=== PATIENT | male | born 1945 | race Native Hawaiian/Other Pacific Islander ===

== ENCOUNTER 2017-01-11 18:09 | Inpatient (IN) | payer MEDICARE ==
[2017-01-11 18:31] VITALS: BMI 20.9
--- NOTE | 2017-01-11 18:34 | ED PDOC ---
Arrival/HPI - General Chief Complaint: Male Genitourinary Time Seen by Provider: 01/11/17 18:34 - History of Present Illness Narrative History of Present Illness (Text): 01/11/17 18:34 A 71 year old male, with a hx of hypotonic bladder, self catheterizes, and states he has a hx of chronic hematuria. State hematuria has been getting worst for the past 2-3 days and now he has generalized weakness. Patient denies cp/sob /vogt. denies n/v, denies other complaints. Past Medical History - Provider Review Nursing Documentation Reviewed: Yes - Infectious Disease Hx of Infectious Diseases: None - Tetanus Immunization Tetanus Immunization: Unknown - Cardiac Hx Hypertension: Yes Hx Pacemaker: No - Neurological Hx Paralysis: No - HEENT Hx HEENT Disorder: (WEARS RX GLASSES) - Hematological/Oncological Hx Anemia: Yes Hx Blood Transfusions: No Hx Blood Transfusion Reaction: No - Musculoskeletal/Rheumatological Hx Musculoskeletal Disorders: No - Genitourinary/Gynecological Hx Prostate Problems: Yes Hx Reproductive Disorders: No Other/Comment: Does self catheterization - Psychiatric Hx Emotional Abuse: No Hx Physical Abuse: No Hx Substance Use: No - Past Surgical History Past Surgical History: No Previous - Anesthesia Hx Anesthesia: Yes Hx Anesthesia Reactions: No Hx Malignant Hyperthermia: No - Suicidal Assessment Feels Threatened In Home Enviroment: No Family/Social History Family/Social History: Unknown Family HX Smoking Status: Former Smoker Hx Alcohol Use: No Hx Substance Use: No Hx Substance Use Treatment: No Allergies/Home Meds Allergies/Adverse Reactions: Allergies ciprofloxacin [From Cipro] Allergy (Severe, Verified 08/12/15 09:32) RASH ciprofloxacin HCl [From Cipro] Allergy (Severe, Verified 08/12/15 09:32) RASH levofloxacin [From Levaquin] Allergy (Severe, Verified 08/12/15 09:32) RASH omeprazole Allergy (Severe, Verified 08/12/15 09:32) RASH sulfamethoxazole [From Bactrim] Allergy (Severe, Verified 08/12/15 09:32) RASH tamsulosin HCl [From Flomax] Allergy (Severe, Verified 08/12/15 09:32) RASH trimethoprim [From Bactrim] Allergy (Severe, Verified 08/12/15 09:32) RASH Home Medications: Home Meds Medication Instructions Recorded Confirmed Atorvastatin Calcium [Lipitor] 10 mg PO DAILY 07/18/13 08/20/15 Olmesartan/Hydrochlorothiazide 1 tab PO DAILY 08/07/13 08/20/15 [Benicar Hct 12.5 mg-20 mg] Alfuzosin HCl [Uroxatral] 10 mg PO QPM 08/12/15 08/20/15 Physical Exam - Physical Exam Narrative Physical Exam (Text): 01/11/17 20:58 - Review of Systems Constitutional: Weakness. absent: Weight Change, Fevers Eyes: Normal ENT: denies sore throat, denies tristhmus Respiratory: Normal. absent: SOB, Cough, Sputum Cardiovascular: absent: Chest Pain, Palpitations, Syncope Gastrointestinal: Normal. absent: Abdominal Pain, Diarrhea, Nausea, Vomiting Genitourinary: Hematuria. absent: Dysuria, Frequency Musculoskeletal: Normal. absent: Arthralgias, Back Pain, Neck Pain Skin: no rashes, no erythema Neurological: absent: Focal Weakness Endocrine: Normal Hemo/Lymphatic: Normal Psychiatric: No suicidal or homicidal ideations Physical exam Patient appears age appropriate in no distress, speaking full sentences without difficulty - Systems Exam Head: Present: Atraumatic, Normocephalic Pupils: Present: PERRL Extroacular Muscles: Present: EOMI Conjunctiva: Present: Normal Mouth: Present: Moist Mucous Membranes Neck: Present: Normal Range of Motion. No: MIDLINE TENDERNESS, Paraspinal Tenderness Respiratory/Chest: Present: Clear to Auscultation, Good Air Exchange. No: Respiratory Distress, Accessory Muscle Use, Tachypneic Cardiovascular: Present: Regular Rate and Rhythm, Normal S1, S2, Peripheal Pulses Present. No: Murmurs Abdomen: Present: Normal Bowel Sounds. No: Tenderness, Distention, Peritoneal Signs, Rebound, Guarding Back: Present: Normal Inspection. No: Midline Tenderness, Paraspinal Tenderness Upper Extremity: Present: Normal Inspection. No: Cyanosis, Edema Lower Extremity: Present: Normal Inspection. No: Edema Neurological: Present: GCS=15, Speech Normal, cranial nerves II through XII fully intact with no cerebellar abnormality, neurosensory fully intact. No focal neurological deficits. Skin: Present: Warm, Dry, Normal Color. No: Rashes Lymphatic: Present: OX3, NI, NC Psychiatric: Present: Alert, Oriented x 3, Normal Insight, Normal Concentration Vital Signs Reviewed: Yes Vital Signs Temp Pulse Resp BP Pulse Ox 01/11/17 18:09 98.3 F 77 16 114/48 L 100 Temperature: Afebrile Blood Pressure: Hypotensive Pulse: Regular Respiratory Rate: Normal Appearance: Positive for: Well-Appearing Pain Distress: None Mental Status: Positive for: Alert and Oriented X 3 Medical Decision Making ED Course and Treatment: Impression: 71yo male with hx of hypotonic bladder and hematuria, presents with worsening hematuria and VOGT along with generalized weakness. Differential Diagnosis included but are not limited to: anemia, hematuria Plan: -- admit Prior Visits: Notes and results from previous visits were reviewed. Patient last seen in the ED on Progress Notes: felipe Matamoros, asked to admit to hospitalist and he will see pt on the floor felipe Morataya (house doc), accepted admission to hospitalist service Hb 7.1, transfusion form signed pt aware of and agrees with plan 01/11/17 21:01 EKG interpreted by ER physician. Normal sinus. No ST-segment elevations. Normal intervals. Chest xray interpreted by ED physician shows no pneumothorax, no cardiomegaly, no infiltrates - Critical Care Critical Care Minutes: 30 minutes - Lab Interpretations Lab Results: 01/11/17 18:54 01/11/17 18:54 Lab Results 01/11/17 19:47: Urine Color Brown, Urine Appearance Sl cloudy, Urine pH 6.5, Ur Specific [place] 1.025, Urine Protein >=300 H, Urine Glucose (UA) Negative, Urine Ketones Trace H, Urine Blood Large H, Urine Nitrate Positive H, Urine Bilirubin Moderate H, Urine Urobilinogen 2.0 H, Ur Leukocyte Esterase Large H, Urine RBC Tntc, Urine WBC Tntc, Ur Epithelial Cells None, Urine Bacteria Large 01/11/17 19:23: Blood Type Confirm A POSITIVE 01/11/17 18:54: TIBC 452 01/11/17 18:54: Sodium 144, Potassium 4.1, Chloride 106, Carbon Dioxide 28, Anion Gap 14, BUN 32 H, Creatinine 1.4, Est GFR ( Amer) > 60, Est GFR ( Non-Af Amer) 50, Random Glucose 103, Calcium 9.1, Ferritin Pending, Total Bilirubin 0.2, AST 28, ALT 35, Alkaline Phosphatase 72, Lactate Dehydrogenase 324 L, Total Creatine Kinase 75, Troponin I < 0.01, Total Protein 7.0, Albumin 4.2, Globulin 2.8, Albumin/Globulin Ratio 1.5 01/11/17 18:54: PT 10.7, INR 0.99, APTT 25.6 01/11/17 18:54: WBC 6.2 D, RBC 3.37 L, Hgb 7.1 L, Hct 24.3 L, MCV 72.1 L, MCH 21.1 L, MCHC 29.2 L, RDW 14.8 H, Plt Count 332, MPV 11.9 H, Gran % 73.9 H, Lymph % (Auto) 15.0 L, [place] % (Auto) 6.0, Eos % (Auto) 4.8, Baso % (Auto) 0.3, Gran # 4.58, Lymph # 0.9 L, [place] # 0.4, Eos # 0.3, Baso # 0.02 01/11/17 18:54: Blood Type A POSITIVE, Antibody Screen Negative, BBK History Checked No verified bt - RAD Interpretation Radiology Orders: 01/11/17 18:38 CHEST PORTABLE [RAD] Stat - Medication Orders Current Medication Orders: Discontinued Medications Sodium Chloride (Sodium Chloride 0.9%) 1,000 mls @ 1,000 mls/hr IV .Q1H STA Stop: 01/11/17 19:37 Last Admin: 01/11/17 19:25 Dose: 1,000 mls/hr Disposition/Present on Arrival - Present on Arrival Any Indicators Present on Arrival: Yes History of DVT/PE: No History of Uncontrolled Diabetes: No Urinary Catheter: Yes (self cath) History of Decub. Ulcer: No History Surgical Site Infection Following: None - Disposition Have Diagnosis and Disposition been Completed?: Yes Diagnosis: Anemia Disposition: HOSPITALIZED Disposition Time: 20:07 Patient Plan: Admission Patient Problems: Current Active Problems Problem Status Onset Anemia Acute Condition: FAIR
[2017-01-11] MEDS ORDERED: Sodium Chloride 0.9% 1,000 ML IV STA (18:38)
[2017-01-11 19:04] LABS: BASO # 0.02 K/mm3 (0.0-2.0); BASO % 0.3 % (0.0-3.0); EOS # 0.3 (0.0-0.7); EOS % 4.8 % (1.5-5.0); GRAN # 4.58 (1.4-6.5); GRAN % 73.9 % (50.0-68.0); HEMATOCRIT 24.3 % (42.0-52.0); LYMPH # 0.9 (1.2-3.4); MEAN CELL VOLUME 72.1 fl (80.0-105.0); MEAN CORPUSCULAR HEMOGLOBIN 21.1 pg (25.0-35.0); MEAN CORPUSCULAR HGB CONC 29.2 g/dl (31.0-37.0); MEAN PLATELET VOLUME 11.9 fl (7.0-11.0); MONO # 0.4 (0.1-0.6); RED CELL DISTRIBUTION WIDTH 14.8 % (11.5-14.5); WHITE BLOOD COUNT 6.2 10^3/ul (4.5-11.0)
[2017-01-11 19:12] LABS: ALB/GLOB RATIO 1.5 (1.1-1.8); ALKALINE PHOSPHATASE 72 U/L (38-126); ALT/SGPT 35 U/L (7-56); AST/SGOT 28 U/L (17-59); BILIRUBIN,TOTAL 0.2 mg/dL (0.2-1.3); BLOOD UREA NITROGEN 32 mg/dL (7-21); CALCIUM 9.1 mg/dL (8.4-10.5); CARBON DIOXIDE 28 mmol/L (21-33); CHLORIDE 106 mmol/L (98-107); GFR AFRICAN-AMERICAN > 60; GLUCOSE,RANDOM 103 mg/dL (70-110); POTASSIUM 4.1 mmol/L (3.6-5.0); SODIUM 144 mmol/L (132-148)
[2017-01-11 19:14] LABS: INR 0.99 (0.93-1.08); PARTIAL THROMBOPLASTIN TIME 25.6 Seconds (23.7-30.8)
[2017-01-11 19:24] LABS: TROPONIN I < 0.01 ng/mL
[2017-01-11 19:51] LABS: PH,URINE 6.5 (4.7-8.0); URINE BILIRUBIN MODERATE (NEGATIVE); URINE BLOOD LARGE (NEGATIVE); URINE GLUCOSE (UA) NEGATIVE (NEGATIVE); URINE KETONE TRACE mg/dL (NEGATIVE); URINE LEUKOCYTE ESTERASE LARGE Leu/uL (NEGATIVE); URINE PROTEIN >=300 mg/dL (<30 mg/dL)
[2017-01-11 19:57] LABS: URINE APPEARANCE SL CLOUDY (CLEAR); URINE COLOR BROWN (YELLOW)
[2017-01-11 20:08] LABS: URINE BACTERIA LARGE (NEG); URINE RBC TNTC /hpf (0-2); URINE WBC TNTC /hpf (0-6)
--- NOTE | 2017-01-12 00:26 | CP.PCM.HP ---
<Albert Galloway - Last Filed: 01/12/17 15:35> History of Present Illness - History of Present Illness History of Present Illness: 71 yo male with with PMH hypotonic bladder, bladder diverticulum, hematuria, HTN , HLD presents with worsening hematuria and feeling weak. He stated that the increased hematuria began 2 weeks go and lasted for 2 days and went away. Currently he states it has been going on for 3 days. He has had hematuria in the past and saw his urologist Dr. Matamoros in the office today and Dr. Matamoros advised him to come to the hospital and get further work up. He also states he catheterizes himself 4-5 times a day due to his hypotonic bladder. He denies any fever, chills, new onset of rash, chest pain, SOB, N/V, diarrhea, suprapubic or abdominal pain, or blood in the stool. PMH: Hypotonic Bladder (2 years ago), hematuria, HTN, HLD, bladder diverticulum PSH: Mentioned a procedure for his prostate unsure Fhx: No significant family hx: Social: stopped tobacaao use in 1984, drinks alcohol socially Allergies: ciprofloxacin, cipro HCl, levofloxacin, omeprazole, sulfamethaxazole , tamsulosin, trimethoprim (all give a rash) Meds: Lipitor 10mg, Benicar 12.5-20 Social Hx: lives with , retired, and worked in [employer] Present on Admission - Present on Admission Any Indicators Present on Admission: No Review of Systems - Constitutional Constitutional: Weakness. absent: Chills, Night Sweats, Weight Loss - Cardiovascular Cardiovascular: absent: Chest Pain, Dyspnea - Respiratory Respiratory: absent: Cough, Dyspnea - Gastrointestinal Gastrointestinal: absent: Abdominal Pain - Genitourinary Genitourinary: Urinary Frequency Additional comments: self catherizes 4-5x a day before used to be 3 times a day - Musculoskeletal Musculoskeletal: absent: Joint Swelling, Myalgias, Numbness, Tingling - Integumentary Integumentary: absent: Rash, Swelling - Neurological Neurological: Restless Legs. absent: Dizziness, Numbness Additional comments: states left leg is restless Past Patient History - Infectious Disease Hx of Infectious Diseases: None - Tetanus Immunizations Tetanus Immunization: Unknown - Past Social History Smoking Status: Former Smoker - CARDIAC Hx Hypercholesterolemia: Yes Hx Hypertension: Yes - NEUROLOGICAL Hx Paralysis: No - HEENT Hx HEENT Problems: (WEARS RX GLASSES) - HEMATOLOGICAL/ONCOLOGICAL Hx Anemia: Yes Hx Blood Transfusions: No Hx Blood Transfusion Reaction: No - MUSCULOSKELETAL/RHEUMATOLOGICAL Hx Falls: No - GENITOURINARY/GYNECOLOGICAL Hx Prostate Problems: Yes Hx Reproductive Disorders: No Other/Comment: Does self catheterization - PSYCHIATRIC Hx Emotional Abuse: No Hx Physical Abuse: No Hx Substance Use: No - SURGICAL HISTORY Hx Surgeries: Yes (CYSTOSCOPY ,PROSTATE SURGERY) - ANESTHESIA Hx Anesthesia: Yes Hx Anesthesia Reactions: No Hx Malignant Hyperthermia: No Meds Allergies/Adverse Reactions: Allergies Allergy/AdvReac Type Severity Reaction Status Date / Time ciprofloxacin [From Cipro] Allergy Severe RASH Verified 08/12/15 09:32 ciprofloxacin HCl Allergy Severe RASH Verified 08/12/15 09:32 [From Cipro] levofloxacin [From Levaquin] Allergy Severe RASH Verified 08/12/15 09:32 omeprazole Allergy Severe RASH Verified 08/12/15 09:32 sulfamethoxazole Allergy Severe RASH Verified 08/12/15 09:32 [From Bactrim] tamsulosin HCl [From Flomax] Allergy Severe RASH Verified 08/12/15 09:32 trimethoprim [From Bactrim] Allergy Severe RASH Verified 08/12/15 09:32 Physical Exam - Constitutional Appears: Well, Non-toxic, No Acute Distress - Head Exam Head Exam: ATRAUMATIC, NORMAL INSPECTION, NORMOCEPHALIC - Eye Exam Eye Exam: Normal appearance, PERRL - Respiratory Exam Respiratory Exam: Clear to Auscultation Bilateral, NORMAL BREATHING PATTERN - Cardiovascular Exam Cardiovascular Exam: REGULAR RHYTHM, +S1, +S2 - GI/Abdominal Exam GI & Abdominal Exam: Normal Bowel Sounds. absent: Tenderness - Extremities Exam Extremities exam: Positive for: normal inspection - Back Exam Back exam: absent: CVA tenderness (L), CVA tenderness (R) - Neurological Exam Neurological exam: Alert, Oriented x3 - Psychiatric Exam Psychiatric exam: Normal Affect Results - Vital Signs Recent Vital Signs: Last Vital Signs Temp 98.1 F 01/11/17 23:28 Pulse 73 01/11/17 23:28 Resp 20 01/11/17 23:28 BP 113/73 01/11/17 23:28 Pulse Ox 100 01/11/17 21:50 - Labs Result Diagrams: 01/12/17 08:15 01/12/17 08:15 Assessment & Plan - Assessment and Plan (Free Text) Assessment: 71 yo male with with PMH hypotonic bladder, bladder diverticulum, hematuria, HTN , HLD presents with worsening hematuria and feeling weak. He is being worked up for hematuria and anemia secondary to the hematuria. Plan: 1. Hematuria - likely due to bladder diverticulum - UA obtained - UA was positive for blood, nitrates, and leukocyte esterase - Urine Culture ordered - urology consult Dr. Matamoros who stated he will perform a CT urogram and a cystoscopy - Patient started on Rocephin 1G Q24H - Patient NPO in case cystoscopy performed tomorrow 2. Anemia- seocndary to hematuria - Hgb of 7.1, MCV of 72.1 - hypochromic microsytic anemia - Anemia workup ordered - Blood type and cross ordered - Transfuse 2 units of PRBC 3. HTN -continue home meds 4. HLD -continue home meds 5. DVT Prophylaxis -SCD <Berta Morataya N - Last Filed: 01/16/17 07:02> Results - Vital Signs Recent Vital Signs: Last Vital Signs Temp 100.3 F H 01/16/17 06:00 Pulse 59 L 01/15/17 19:12 Resp 20 01/15/17 18:37 BP 148/87 01/15/17 19:12 Pulse Ox 97 01/15/17 18:37 - Labs Result Diagrams: 01/15/17 06:30 01/15/17 06:30 Labs: Laboratory Results - last 24 hr 01/15/17 01/15/17 06:30 06:30 WBC 7.8 D RBC 4.74 Hgb 11.2 L D Hct 35.5 L MCV 74.9 L MCH 23.6 L MCHC 31.5 RDW 16.3 H Plt Count 254 Gran % 73.1 H Lymph % (Auto) 14.7 L [place] % (Auto) 6.0 Eos % (Auto) 5.9 H Baso % (Auto) 0.3 Gran # 5.70 Lymph # 1.2 [place] # 0.5 Eos # 0.5 Baso # 0.02 Sodium 142 Potassium 4.0 Chloride 110 H Carbon Dioxide 25 Anion Gap 11 BUN 15 Creatinine 1.1 Est GFR ( Amer) > 60 Est GFR (Non-Af Amer) > 60 Random Glucose 86 Calcium 8.1 L
[2017-01-12] MEDS: Sodium Chloride 0.9% 1,000 ML IV SCH ×2 (05:32→17:13)
[2017-01-12 08:34] LABS: BASO # 0.02 K/mm3 (0.0-2.0); BASO % 0.3 % (0.0-3.0); EOS # 0.3 (0.0-0.7); EOS % 3.4 % (1.5-5.0); GRAN # 6.03 (1.4-6.5); GRAN % 77.7 % (50.0-68.0); HEMATOCRIT 28.7 % (42.0-52.0); LYMPH # 0.9 (1.2-3.4); MEAN CELL VOLUME 73.8 fl (80.0-105.0); MEAN CORPUSCULAR HEMOGLOBIN 22.9 pg (25.0-35.0); MONO # 0.5 (0.1-0.6); MONO % 6.6 % (1.0-6.0); PLATELET COUNT 225 10^3/uL (120.0-450.0); RED CELL DISTRIBUTION WIDTH 15.7 % (11.5-14.5); WHITE BLOOD COUNT 7.8 10^3/ul (4.5-11.0)
[2017-01-12 08:48] LABS: BLOOD UREA NITROGEN 26 mg/dL (7-21); CALCIUM 8.3 mg/dL (8.4-10.5); CARBON DIOXIDE 24 mmol/L (21-33); CHLORIDE 110 mmol/L (98-107); GFR AFRICAN-AMERICAN > 60; GLUCOSE,RANDOM 90 mg/dL (70-110); POTASSIUM 4.1 mmol/L (3.6-5.0); SODIUM 142 mmol/L (132-148)
--- NOTE | 2017-01-12 08:59 | RAD ---
HISTORY: cough COMPARISON: 08/12/2015 FINDINGS: LUNGS: No active pulmonary disease. PLEURA: No significant pleural effusion identified, no pneumothorax apparent. CARDIOVASCULAR: Normal. OSSEOUS STRUCTURES: No significant abnormalities. VISUALIZED UPPER ABDOMEN: Normal. OTHER FINDINGS: None. IMPRESSION: No active disease.
[2017-01-12 09:24] LABS: RETIC% 1.18 % (0.5-1.5)
[2017-01-12] MEDS: cefTRIAXone 1 gm 1 GM/100 ML BAG IVPB SCH (10:59)
--- NOTE | 2017-01-12 11:36 | CON ---
consultation at [facility]. DATE: 01/12/2017 CHIEF COMPLAINT: Gross hematuria. HISTORY OF PRESENT ILLNESS: This is a 71-year-old man with a history of hypotonic bladder, large posterior bladder diverticulum. He has been doing intermittent catheterization for a number of years. He was seen in the office yesterday telling me he had a 2-week history of gross hematuria from his catheterization. He had seen his family doctor 2 weeks earlier and was told his hemoglobin was in the 8s. When I saw him, he appeared pale, he was not orthostatic, but still had some gross hematuria. I advised him to go to the ER, called the ER and arranged for him to be admitted at which point his hemoglobin was 7.1. He was given 2 units of packed cells. His hemoglobin this morning is 8.9. He is afebrile. His white count is normal. The Kendrick catheter was placed, it is draining old blood, no evidence of active bleeding. In the past, over [id number] ago, CAT scan showed a large vascular prostate, a cystoscopy only showed a posterior diverticulum. There were no bladder tumors at that time. PAST MEDICAL HISTORY: Reveals a history of hypertension. He does not void on his own. ALLERGIES: HE HAS ALLERGIES TO CIPRO AND OTHER QUINOLONES, BACTRIM, FLOMAX AND TRIMETHOPRIM ALONG WITH PRILOSEC. MEDICATIONS: At home, he is on Lipitor and Benicar. SOCIAL HISTORY: He does not smoke. He drinks socially. FAMILY HISTORY: Noncontributory. REVIEW OF SYSTEMS: He has some weakness, but currently feels much better than he did prior to admission. He has no fever or chills. No symptoms referable to the head, eyes, ears, nose, or throat. No cardiac or respiratory symptoms. No GI symptoms. No dermatologic or psychiatric symptoms. PHYSICAL EXAMINATION: VITAL SIGNS: Shows him to be afebrile, pulse 68, blood pressure 105/75, respirations 20. HEENT: Normocephalic. Sclerae are clear. The conjunctivae are still pale, but improved over yesterday. BACK: No CVA pain. ABDOMEN: No hepatosplenomegaly, rebound, or guarding. No suprapubic tenderness. GENITALIA: Penis, testicles, prostate, cord, epididymis all normal. The Kendrick is draining. I re-anchored the Kendrick to take tension off it from the disk which was applied in the emergency room. He has put out 20 mL since this morning. He appears hydrated. PLAN: Is to await the urine culture. He currently is on Rocephin and probably within 48 hours a cysto to further evaluate the bladder and see what may have been bleeding. Da Matamoros MD
--- NOTE | 2017-01-12 13:05 | CARD ---
APPROVED REPORT EKG Measurement Heart [id number] [place] [id number] [id number] <Conclusion> Normal sinus rhythm Low voltage QRS Borderline ECG
[2017-01-12] MEDS: ALFUZOSIN HCL 10 MG PO SCH (17:11)
[2017-01-13 07:13] LABS: BASO # 0.01 K/mm3 (0.0-2.0); BASO % 0.1 % (0.0-3.0); EOS # 0.3 (0.0-0.7); EOS % 4.1 % (1.5-5.0); GRAN # 5.24 (1.4-6.5); GRAN % 73.4 % (50.0-68.0); HEMATOCRIT 27.7 % (42.0-52.0); LYMPH # 0.8 (1.2-3.4); LYMPH % 11.6 % (22.0-35.0); MEAN CELL VOLUME 73.1 fl (80.0-105.0); MEAN CORPUSCULAR HEMOGLOBIN 22.7 pg (25.0-35.0); MEAN PLATELET VOLUME 9.3 fl (7.0-11.0); MONO # 0.8 (0.1-0.6); MONO % 10.8 % (1.0-6.0); RED CELL DISTRIBUTION WIDTH 15.5 % (11.5-14.5); WHITE BLOOD COUNT 7.1 10^3/ul (4.5-11.0)
[2017-01-13 07:41] LABS: BLOOD UREA NITROGEN 16 mg/dL (7-21); CALCIUM 7.9 mg/dL (8.4-10.5); CARBON DIOXIDE 25 mmol/L (21-33); CHLORIDE 110 mmol/L (98-107); GFR AFRICAN-AMERICAN > 60; GLUCOSE,RANDOM 90 mg/dL (70-110); POTASSIUM 3.7 mmol/L (3.6-5.0); SODIUM 140 mmol/L (132-148)
[2017-01-13] MEDS ORDERED: Potassium Chloride 20 mEq ER Tab PO ONE (09:34)
[2017-01-13] MEDS: cefTRIAXone 1 gm 1 GM/100 ML BAG IVPB SCH (10:20)
[2017-01-13] MEDS: ALFUZOSIN HCL 10 MG PO SCH (19:01)
[2017-01-13] MEDS: Sodium Chloride 0.9% 1,000 ML IV SCH (20:26)
[2017-01-14 07:16] LABS: BASO # 0.01 K/mm3 (0.0-2.0); BASO % 0.2 % (0.0-3.0); EOS # 0.4 (0.0-0.7); EOS % 6.5 % (1.5-5.0); GRAN # 3.87 (1.4-6.5); GRAN % 66.5 % (50.0-68.0); HEMATOCRIT 27.6 % (42.0-52.0); LYMPH # 1.1 (1.2-3.4); LYMPH % 18.7 % (22.0-35.0); MEAN CELL VOLUME 73.4 fl (80.0-105.0); MEAN CORPUSCULAR HEMOGLOBIN 22.3 pg (25.0-35.0); MEAN CORPUSCULAR HGB CONC 30.4 g/dl (31.0-37.0); MEAN PLATELET VOLUME 10.4 fl (7.0-11.0); MONO # 0.5 (0.1-0.6); MONO % 8.1 % (1.0-6.0); RED CELL DISTRIBUTION WIDTH 15.9 % (11.5-14.5); WHITE BLOOD COUNT 5.8 10^3/ul (4.5-11.0)
[2017-01-14 07:39] LABS: BLOOD UREA NITROGEN 15 mg/dL (7-21); CALCIUM 7.9 mg/dL (8.4-10.5); CARBON DIOXIDE 24 mmol/L (21-33); CHLORIDE 110 mmol/L (98-107); GFR AFRICAN-AMERICAN > 60; GLUCOSE,RANDOM 89 mg/dL (70-110); POTASSIUM 3.9 mmol/L (3.6-5.0); SODIUM 142 mmol/L (132-148)
--- NOTE | 2017-01-14 08:26 | PN ---
GENITOURINARY PROGRESS NOTE DATE: 01/13/2017 SUBJECTIVE: The patient is seen in his room. He is awake and alert. He is in no acute distress. PHYSICAL EXAMINATION: VITAL SIGNS: He is afebrile, temperature 98, pulse 72, BP 116/70 and respirations 20. ABDOMEN: Soft, nontender and nondistended. There is no CVA tenderness. There is no hepatosplenomegaly. Pelvis is normal. There is a Kendrick catheter in place, which is currently draining clear colored urine. LABORATORY DATA: Urine culture positive for Gram-negative rods. Hemoglobin is 8.6, hematocrit of 27.7 and platelet count of 212. GFR greater than 60. Chest x-ray showed no active disease from 01/11/2017. IMPRESSION AND PLAN: This is a 71-year-old male with gross hematuria and anemia. He does catheterization at home for neurogenic bladder and history of a large bladder diverticulum. He has been found to have a large bladder mass possibly clots, possibly tumor as because of his hematuria. Symptomatically, he is still anemic. I have scheduled to him for a cystoscopy, possible evacuation of clots, possible resection of bladder tumor which is scheduled for Wednesday. We continue on IV antibiotics at this time as his urine will be colonized due to his continued straight catheterizations and I would consider further transfusion as he is still anemic and blood pressure is borderline. I will discuss this with the medical staff who is following him. We should plan to make him n.p.o. after midnight tomorrow and optimize him for the operating room on Wednesday. Selvin Cerda MD
[2017-01-14] MEDS: cefTRIAXone 1 gm 1 GM/100 ML BAG IVPB SCH (11:44)
--- NOTE | 2017-01-14 14:57 | CP.PCM.PN ---
<Festus Rosas - Last Filed: 01/14/17 15:37> Subjective - Date & Time of Evaluation Date of Evaluation: 01/14/17 Time of Evaluation: 08:56 - Subjective Subjective: Festus Rosas DO, PGY-1, Hospitalist Service Patient seen and examined at bedside. Patient denies any fatigue, light- headedness, or syncope. Patient consented to 2 Units of PRBCs. Objective - Vital Signs/Intake and Output Vital Signs (last 24 hours): Temp Pulse Resp BP Pulse Ox 98.1 F 68 16 127/82 98 01/14/17 07:30 01/14/17 11:45 01/14/17 07:30 01/14/17 11:45 01/14/17 07:30 Intake and Output: 01/14/17 01/14/17 06:59 18:59 Intake Total 600 Output Total 1650 Balance -1050 - Medications Medications: Current Medications Atorvastatin Calcium (Lipitor) 10 mg PO DAILY PENDING SALE TO [facility] Last Admin: 01/14/17 11:45 Dose: 10 mg Hydrochlorothiazide (Microzide) 12.5 mg PO DAILY PENDING SALE TO [facility] Last Admin: 01/14/17 11:46 Dose: 12.5 mg Ceftriaxone Sodium (Rocephin 1 Gram Ivpb) 1 gm in 100 mls @ 100 mls/hr IVPB DAILY PENDING SALE TO [facility] PRN Reason: Protocol Last Admin: 01/14/17 11:44 Dose: 100 mls/hr Sodium Chloride (Sodium Chloride 0.9%) 1,000 mls @ 100 mls/hr IV .Q10H PENDING SALE TO [facility] Last Admin: 01/13/17 20:26 Dose: Not Given Losartan Potassium (Cozaar) 50 mg PO DAILY PENDING SALE TO [facility] Last Admin: 01/14/17 11:45 Dose: 50 mg Non-Formulary Medication (Alfuzosin Hcl [Uroxatral]) 10 mg PO QPM PENDING SALE TO [facility] Last Admin: 01/13/17 19:01 Dose: Not Given - Labs Labs: 01/14/17 06:45 01/14/17 06:45 PT 10.7 Seconds (9.9-11.8) 01/11/17 18:54 INR 0.99 (0.93-1.08) 01/11/17 18:54 APTT 25.6 Seconds (23.7-30.8) 01/11/17 18:54 Assessment and Plan - Assessment and Plan (Free Text) Assessment: 71 year old male with hypotonic bladder, bladder diverticulum, hypertension, hyperlipidemia who presents with gross hematuria found to be anemic with an H/H on admission of 7.1/24.3. Plan: 1. Gross hematuria - Patient is with Kendrick catheter, uine appears yellow, without blood grossly. -Dr. Matamoros/Zaida plan to perform cystoscopy procedure tomorrow - Patient to be NPO after midnight 2) UTI - Empirically started on Ceftriaxone 1 gram q 24h - Urine Culture reveals Serratia Marcesans susceptible to Ceftriaxone with INGRIS less than 1 - Dr. Matamoros/Zaida plan to perform cystoscopy procedure tomorrow - Patient to be NPO 3) Microcytic Anemia - H/H today was 8.4/27.6 - Blood type and cross, consent obtained, transfuse 2U of PRBCs and will follow morning labs. 4) Hypertension - HCTZ 12.5 mg PO daily -Losartan 50 mg PO daily 5) Hyperlipidemia - Atorvastatin 10 mg 6) DVT prophylaxis: SCD <Juan Morataya - Last Filed: 01/15/17 12:42> Objective - Vital Signs/Intake and Output Vital Signs (last 24 hours): Temp Pulse Resp BP Pulse Ox 98.1 F 63 20 149/82 99 01/15/17 11:30 01/15/17 11:30 01/15/17 11:30 01/15/17 11:30 01/15/17 11:30 Intake and Output: 01/15/17 01/15/17 06:59 18:59 Intake Total 1150 Output Total 1600 Balance -450 - Medications Medications: Current Medications Atorvastatin Calcium (Lipitor) 10 mg PO DAILY PENDING SALE TO [facility] Last Admin: 01/14/17 11:45 Dose: 10 mg Hydrochlorothiazide (Microzide) 12.5 mg PO DAILY PENDING SALE TO [facility] Last Admin: 01/14/17 11:46 Dose: 12.5 mg Ceftriaxone Sodium (Rocephin 1 Gram Ivpb) 1 gm in 100 mls @ 100 mls/hr IVPB DAILY PENDING SALE TO [facility] PRN Reason: Protocol Last Admin: 01/15/17 10:33 Dose: 100 mls/hr Sodium Chloride (Sodium Chloride 0.9%) 1,000 mls @ 100 mls/hr IV .Q10H PENDING SALE TO [facility] Last Admin: 01/15/17 10:33 Dose: 100 mls/hr Sodium Chloride (Sodium Chloride 0.9%) 1,000 mls @ 75 mls/hr IV .[id number] PENDING SALE TO [facility] Stop: 01/15/17 14:31 Losartan Potassium (Cozaar) 50 mg PO DAILY PENDING SALE TO [facility] Last Admin: 01/14/17 11:45 Dose: 50 mg Non-Formulary Medication (Alfuzosin Hcl [Uroxatral]) 10 mg PO QPM PENDING SALE TO [facility] Last Admin: 01/14/17 18:52 Dose: Not Given - Labs Labs: 01/15/17 06:30 01/15/17 06:30 PT 10.7 Seconds (9.9-11.8) 01/11/17 18:54 INR 0.99 (0.93-1.08) 01/11/17 18:54 APTT 25.6 Seconds (23.7-30.8) 01/11/17 18:54 Attending/Attestation - Attestation I have personally seen and examined this patient.: Yes I have fully participated in the care of the patient.: Yes I have reviewed all pertinent clinical information, including history, physical exam and plan: Yes Notes (Text): I have seen and examined the patient at bedside. Agree with the above note with the following additions/ exceptions: Briefly this is 71 year old male with history of hypotonic bladder, bladder diverticulum, hypertension, hyperlipidemia who presents with gross hematuria and found to be anemic. He has received 2 units so far. Patient is still anemic and is going to OR tomorrow for possible resection of bladder tumor. Will transfuse 2 more prbc today. He will be NPO past midnight. Continue rocephin. Upon discharge patient will follow up with Dr Yoder. Dr Juan Morataya
[2017-01-14] MEDS: ALFUZOSIN HCL 10 MG PO SCH (18:52)
[2017-01-15] MEDS: Sodium Chloride 0.9% 1,000 ML IV SCH ×2 (00:32→10:33)
[2017-01-15 07:15] LABS: BASO # 0.02 K/mm3 (0.0-2.0); BASO % 0.3 % (0.0-3.0); EOS # 0.5 (0.0-0.7); EOS % 5.9 % (1.5-5.0); GRAN % 73.1 % (50.0-68.0); HEMATOCRIT 35.5 % (42.0-52.0); LYMPH # 1.2 (1.2-3.4); LYMPH % 14.7 % (22.0-35.0); MEAN CELL VOLUME 74.9 fl (80.0-105.0); MEAN CORPUSCULAR HEMOGLOBIN 23.6 pg (25.0-35.0); MEAN CORPUSCULAR HGB CONC 31.5 g/dl (31.0-37.0); MONO # 0.5 (0.1-0.6); PLATELET COUNT 254 10^3/uL (120.0-450.0); RED CELL DISTRIBUTION WIDTH 16.3 % (11.5-14.5); WHITE BLOOD COUNT 7.8 10^3/ul (4.5-11.0)
[2017-01-15 07:29] LABS: BLOOD UREA NITROGEN 15 mg/dL (7-21); CALCIUM 8.1 mg/dL (8.4-10.5); CARBON DIOXIDE 25 mmol/L (21-33); CHLORIDE 110 mmol/L (98-107); GFR AFRICAN-AMERICAN > 60; GLUCOSE,RANDOM 86 mg/dL (70-110); SODIUM 142 mmol/L (132-148)
[2017-01-15] MEDS: cefTRIAXone 1 gm 1 GM/100 ML BAG IVPB SCH (10:33)
[2017-01-15] MEDS ORDERED: Sodium Chloride 0.9% 1,000 ML IV SCH (12:30)
--- NOTE | 2017-01-15 13:04 | CP.PCM.PN ---
<Festus Rosas - Last Filed: 01/15/17 18:10> Subjective - Date & Time of Evaluation Date of Evaluation: 01/15/17 Time of Evaluation: 09:40 - Subjective Subjective: Festus Rosas DO, PGY-1, Hospitalist Service Patient seen and examined at bedside. Patient reports feeling well without any reaction to the blood transfusion. His urine is noticeably more pink, i.e. more blood in the Kendrick bag. Objective - Vital Signs/Intake and Output Vital Signs (last 24 hours): Temp Pulse Resp BP Pulse Ox 98.1 F 63 20 149/82 99 01/15/17 11:30 01/15/17 11:30 01/15/17 11:30 01/15/17 11:30 01/15/17 11:30 Intake and Output: 01/15/17 01/15/17 06:59 18:59 Intake Total 1150 Output Total 1600 Balance -450 - Medications Medications: Current Medications Atorvastatin Calcium (Lipitor) 10 mg PO DAILY [facility] Last Admin: 01/14/17 11:45 Dose: 10 mg Hydrochlorothiazide (Microzide) 12.5 mg PO DAILY [facility] Last Admin: 01/14/17 11:46 Dose: 12.5 mg Ceftriaxone Sodium (Rocephin 1 Gram Ivpb) 1 gm in 100 mls @ 100 mls/hr IVPB DAILY [facility] PRN Reason: Protocol Last Admin: 01/15/17 10:33 Dose: 100 mls/hr Sodium Chloride (Sodium Chloride 0.9%) 1,000 mls @ 100 mls/hr IV .Q10H [facility] Last Admin: 01/15/17 10:33 Dose: 100 mls/hr Sodium Chloride (Sodium Chloride 0.9%) 1,000 mls @ 75 mls/hr IV .[id number] [facility] Stop: 01/15/17 14:31 Losartan Potassium (Cozaar) 50 mg PO DAILY [facility] Last Admin: 01/14/17 11:45 Dose: 50 mg Non-Formulary Medication (Alfuzosin Hcl [Uroxatral]) 10 mg PO QPM [facility] Last Admin: 01/14/17 18:52 Dose: Not Given - Labs Labs: 01/15/17 06:30 01/15/17 06:30 PT 10.7 Seconds (9.9-11.8) 01/11/17 18:54 INR 0.99 (0.93-1.08) 01/11/17 18:54 APTT 25.6 Seconds (23.7-30.8) 01/11/17 18:54 - Constitutional Appears: Well, Non-toxic, No Acute Distress - Head Exam Head Exam: ATRAUMATIC, NORMOCEPHALIC - Eye Exam Eye Exam: EOMI, Normal appearance, PERRL - ENT Exam ENT Exam: Mucous Membranes Moist, Normal Oropharynx - Neck Exam Neck Exam: Normal Inspection. absent: Tenderness - Respiratory Exam Respiratory Exam: Clear to Ausculation Bilateral, NORMAL BREATHING PATTERN. absent: Wheezes - Cardiovascular Exam Cardiovascular Exam: RRR, +S1, +S2 - GI/Abdominal Exam GI & Abdominal Exam: Soft, Normal Bowel Sounds. absent: Distended, Rebound - Extremities Exam Extremities Exam: Normal Capillary Refill, Normal Inspection - Back Exam Back Exam: NORMAL INSPECTION. absent: CVA tenderness (L), CVA tenderness (R) - Neurological Exam Neurological Exam: Alert, Awake, CN II-XII Intact Neuro motor strength exam: Left Upper Extremity: 5, Right Upper Extremity: 5, Left Lower Extremity: 5, Right Lower Extremity: 5 - Psychiatric Exam Psychiatric exam: Normal Affect, Normal Mood - Skin Skin Exam: Dry, Intact, Normal Color, Warm Assessment and Plan - Assessment and Plan (Free Text) Assessment: 71 year old male with hypotonic bladder, bladder diverticulum, hypertension, hyperlipidemia who presents with gross hematuria found to be anemic with an H/H on admission of 7.1/24.3. He has received a total 4 units of PRBCs Plan: Plan: 1. Gross hematuria - Patient is with Kendrick catheter, urine appears somewhat pink today -Dr. Matamroos/Zaida plan to perform cystoscopy procedure today - Patient to be NPO after midnight 2) UTI - Empirically started on Ceftriaxone 1 gram q 24h - Urine Culture reveals Serratia Marcesans susceptible to Ceftriaxone with INGRIS less than 1 - Dr. Matamoros/Zaida plan to perform cystoscopy procedure tomorrow - Patient to be NPO 3) Microcytic Anemia - H/H today was 11.2/35.5 4) Hypertension - HCTZ 12.5 mg PO daily -Losartan 50 mg PO daily 5) Hyperlipidemia - Atorvastatin 10 mg 6) DVT prophylaxis: SCD <Juan Morataya B - Last Filed: 01/16/17 15:17> Objective - Vital Signs/Intake and Output Vital Signs (last 24 hours): Temp Pulse Resp BP Pulse Ox 100.3 F H 60 16 148/68 99 01/16/17 07:30 01/16/17 10:42 01/16/17 07:30 01/16/17 10:42 01/16/17 07:30 Intake and Output: 01/16/17 01/16/17 06:59 18:59 Intake Total 1440 720 Output Total 9600 Balance -8160 720 - Labs Labs: 01/16/17 07:07 01/16/17 07:07 PT 10.7 Seconds (9.9-11.8) 01/11/17 18:54 INR 0.99 (0.93-1.08) 01/11/17 18:54 APTT 25.6 Seconds (23.7-30.8) 01/11/17 18:54 Attending/Attestation - Attestation I have personally seen and examined this patient.: Yes I have fully participated in the care of the patient.: Yes I have reviewed all pertinent clinical information, including history, physical exam and plan: Yes Notes (Text): I have seen and examined the patient at bedside. Agree with the above note with the following additions/ exceptions: Briefly this is 71 year old male with history of hypotonic bladder, bladder diverticulum, hypertension, hyperlipidemia who presents with gross hematuria and found to be anemic. He was given 2 units of prbc so far. Today he has more hematuria. Hb is stable. Plan for cystoscopy tomorrow for possible resection of bladder tumor. He will be NPO past midnight. Continue rocephin. Upon discharge patient will follow up with Dr Yoder. Dr Juan Morataya
[2017-01-15] MEDS ORDERED: Propofol 10 mg/ml Inj (20 ML) ONE (14:52)
[2017-01-15] MEDS ORDERED: Midazolam 2 MG/2 ML VIAL ONE (14:57)
[2017-01-15] MEDS ORDERED: Lactated Ringer's 1,000 ML IV SCH (15:41)
[2017-01-15] MEDS: ALFUZOSIN HCL 10 MG PO SCH (19:14)
--- NOTE | 2017-01-15 20:08 | PN ---
DATE: The patient is seen postoperatively in the recovery room. He is awake and alert. His abdomen is benign. Kendrick catheter in place, draining clear urine on slow CBI. I discussed the findings of the cystoscopy with the patient. Plan for now will be to keep him overnight on CBI. If the irrigation is clear tomorrow morning, CBI can be turned off. The patient can be discharged home. The patient will be restarted on finasteride 5 mg p.o. daily and he will follow up with us in the office for a removal of Kendrick catheter in approximately 1 week. Selvin Cerda MD
[2017-01-16] MEDS: Sodium Chloride 0.9% 1,000 ML IV SCH (00:59)
[2017-01-16 06:06] VITALS: TEMP 100.3
[2017-01-16 07:27] LABS: BLOOD UREA NITROGEN 14 mg/dL (7-21); CALCIUM 8.1 mg/dL (8.4-10.5); CARBON DIOXIDE 24 mmol/L (21-33); CHLORIDE 106 mmol/L (98-107); GFR AFRICAN-AMERICAN > 60; GLUCOSE,RANDOM 90 mg/dL (70-110); POTASSIUM 3.6 mmol/L (3.6-5.0); SODIUM 140 mmol/L (132-148)
[2017-01-16 08:10] LABS: BASO # 0.02 K/mm3 (0.0-2.0); BASO % 0.2 % (0.0-3.0); EOS # 0.3 (0.0-0.7); EOS % 3.1 % (1.5-5.0); GRAN # 8.49 (1.4-6.5); GRAN % 84.8 % (50.0-68.0); HEMATOCRIT 36.4 % (42.0-52.0); LYMPH # 0.6 (1.2-3.4); LYMPH % 6.3 % (22.0-35.0); MEAN CELL VOLUME 74.9 fl (80.0-105.0); MEAN CORPUSCULAR HEMOGLOBIN 24.3 pg (25.0-35.0); MEAN CORPUSCULAR HGB CONC 32.4 g/dl (31.0-37.0); MONO # 0.6 (0.1-0.6); MONO % 5.6 % (1.0-6.0); RED CELL DISTRIBUTION WIDTH 16.8 % (11.5-14.5)
[2017-01-16 08:11] VITALS: BP 148/68; PULSE 60; RESP 16; O2SAT 99
[2017-01-16 09:05] LABS: PLATELET COUNT 247 10^3/uL (120.0-450.0)
[2017-01-16] MEDS: cefTRIAXone 1 gm 1 GM/100 ML BAG IVPB SCH (10:36)
--- NOTE | 2017-01-16 15:25 | CP.PCM.DIS ---
<BEN SCHMIDT - Last Filed: 01/16/17 23:23> Provider - Provider Date of Admission: 01/11/17 20:14 Attending physician: Juan Morataya MD Primary care physician: Jas Yoder MD Time Spent in preparation of Discharge (in minutes): 45 Hospital Course - Lab Results Lab Results: Micro Results 01/11/17 21:30 Urine,Clean Catch Urine Culture - Final Serratia Marcescens Most Recent Lab Values WBC 10.0 10^3/ul (4.5-11.0) D 01/16/17 07:07 RBC 4.86 10^6/uL (3.5-6.1) 01/16/17 07:07 Hgb 11.8 g/dL (14.0-18.0) L 01/16/17 07:07 Hct 36.4 % (42.0-52.0) L 01/16/17 07:07 MCV 74.9 fl (80.0-105.0) L 01/16/17 07:07 MCH 24.3 pg (25.0-35.0) L 01/16/17 07:07 MCHC 32.4 g/dl (31.0-37.0) 01/16/17 07:07 RDW 16.8 % (11.5-14.5) H 01/16/17 07:07 Plt Count 247 10^3/uL (120.0-450.0) 01/16/17 07:07 MPV 10.4 fl (7.0-11.0) 01/14/17 06:45 Gran % 84.8 % (50.0-68.0) H 01/16/17 07:07 Lymph % (Auto) 6.3 % (22.0-35.0) L 01/16/17 07:07 [place] % (Auto) 5.6 % (1.0-6.0) 01/16/17 07:07 Eos % (Auto) 3.1 % (1.5-5.0) 01/16/17 07:07 Baso % (Auto) 0.2 % (0.0-3.0) 01/16/17 07:07 Gran # 8.49 (1.4-6.5) H 01/16/17 07:07 Lymph # 0.6 (1.2-3.4) L 01/16/17 07:07 [place] # 0.6 (0.1-0.6) 01/16/17 07:07 Eos # 0.3 (0.0-0.7) 01/16/17 07:07 Baso # 0.02 K/mm3 (0.0-2.0) 01/16/17 07:07 Retic Count 1.18 % (0.5-1.5) 01/12/17 07:30 PT 10.7 Seconds (9.9-11.8) 01/11/17 18:54 INR 0.99 (0.93-1.08) 01/11/17 18:54 APTT 25.6 Seconds (23.7-30.8) 01/11/17 18:54 Sodium 140 mmol/L (132-148) 01/16/17 07:07 Potassium 3.6 mmol/L (3.6-5.0) 01/16/17 07:07 Chloride 106 mmol/L (98-107) 01/16/17 07:07 Carbon Dioxide 24 mmol/L (21-33) 01/16/17 07:07 Anion Gap 14 (10-20) 01/16/17 07:07 BUN 14 mg/dL (7-21) 01/16/17 07:07 Creatinine 1.1 mg/dL (0.5-1.4) 01/16/17 07:07 Est GFR ( Amer) > 60 01/16/17 07:07 Est GFR (Non-Af Amer) > 60 01/16/17 07:07 Random Glucose 90 mg/dL (70-110) 01/16/17 07:07 Calcium 8.1 mg/dL (8.4-10.5) L 01/16/17 07:07 TIBC 452 ug/dL (261-462) 01/11/17 18:54 Transferrin 364.35 mg/dL (206-381) 01/11/17 18:54 Ferritin 2.7 ng/mL 01/11/17 18:54 Total Bilirubin 0.2 mg/dL (0.2-1.3) 01/11/17 18:54 AST 28 U/L (17-59) 01/11/17 18:54 ALT 35 U/L (7-56) 01/11/17 18:54 Alkaline Phosphatase 72 U/L (38-126) 01/11/17 18:54 Lactate Dehydrogenase 324 U/L (333-699) L 01/11/17 18:54 Total Creatine Kinase 75 U/L (35-230) 01/11/17 18:54 Troponin I < 0.01 ng/mL 01/11/17 18:54 Total Protein 7.0 g/dL (5.8-8.3) 01/11/17 18:54 Albumin 4.2 g/dL (3.0-4.8) 01/11/17 18:54 Globulin 2.8 gm/dL 01/11/17 18:54 Albumin/Globulin Ratio 1.5 (1.1-1.8) 01/11/17 18:54 Urine Color Brown (YELLOW) 01/11/17 19:47 Urine Appearance Sl cloudy (CLEAR) 01/11/17 19:47 Urine pH 6.5 (4.7-8.0) 01/11/17 19:47 Ur Specific [place] 1.025 (1.005-1.035) 01/11/17 19:47 Urine Protein >=300 mg/dL (<30 mg/dL) H 01/11/17 19:47 Urine Glucose (UA) Negative mg/dL (NEGATIVE) 01/11/17 19:47 Urine Ketones Trace mg/dL (NEGATIVE) H 01/11/17 19:47 Urine Blood Large (NEGATIVE) H 01/11/17 19:47 Urine Nitrate Positive (NEGATIVE) H 01/11/17 19:47 Urine Bilirubin Moderate (NEGATIVE) H 01/11/17 19:47 Urine Urobilinogen 2.0 E.U./dL (<1 E.U./dL) H 01/11/17 19:47 Ur Leukocyte Esterase Large Bess/uL (NEGATIVE) H 01/11/17 19:47 Urine RBC Tntc /hpf (0-2) 01/11/17 19:47 Urine WBC Tntc /hpf (0-6) 01/11/17 19:47 Ur Epithelial Cells None /hpf (0-5) 01/11/17 19:47 Urine Bacteria Large (NEG) 01/11/17 19:47 Blood Type A POSITIVE 01/14/17 12:50 Blood Type Confirm A POSITIVE 01/11/17 19:23 Antibody Screen Negative 01/14/17 12:50 Crossmatch See Detail 01/14/17 12:50 BBK History Checked Patient has bt 01/14/17 12:50 - Hospital Course Hospital Course: 71 yo male with with PMH hypotonic bladder, bladder diverticulum, hematuria, HTN , HLD presents with worsening hematuria and feeling weak. He stated that the increased hematuria began 2 weeks go and lasted for 2 days and went away. Currently he states it has been going on for 3 days. He has had hematuria in the past and saw his urologist Dr. Matamoros in the office and Dr. Matamoros advised him to come to the hospital and get further work up. He also states he catheterizes himself 4-5 times a day due to his hypotonic bladder. Pt was admitted to med- surg floors for monitoring. Due to anemia,pt was transfused 2u pRBC prior to cystoscopy, due to its bleed risk. Pt went for cystoscopy on 01/[address] Cerda, then was on CBI overnight. In the morning, the singleton put out ~600cc clear fluid with no blood or clots. Dr. Watts, who was covering Dr. Cerda, was contacted regarding the d/c of the patient and he agreed with the outlined plan. Pt would be d/c on Finasteride and cont his home meds. Urine cx at admission grew Serratia and pt received Rocephin x5d, and was d/c on Vantin due to sensitivities to ceftriaxone and similar 3rd gen cephalosporins. Temp the night before d/c was 100.3, and Tylenol was added PRN, however, at d/c pt TEMP is 98F. On morning of d/c, pt is doing well and only offers complaints of pain due to the trauama of the surgery, but is tolerating off PRN pain meds. pt denies fevers, chills, pain on urination, hematuria, cp or sob. pt is well educated on what he is to do and will f/u Dr. Cerda w/i 1 week for removal of singleton. - Date & Time of H&P Date of H&P: 01/12/17 Time of H&P: 00:05 Discharge Exam - Head Exam Head Exam: ATRAUMATIC, NORMAL INSPECTION, NORMOCEPHALIC - Eye Exam Eye Exam: EOMI, Normal appearance, PERRL Pupil Exam: NORMAL ACCOMODATION - ENT Exam ENT Exam: Mucous Membranes Moist - Neck Exam Neck exam: Normal Inspection - Respiratory Exam Respiratory Exam: Clear to PA & Lateral, NORMAL BREATHING PATTERN, UNREMARKABLE. absent: Accessory Muscle Use, Rhonchi, Wheezes, Respiratory Distress - Cardiovascular Exam Cardiovascular Exam: RRR, +S1, +S2. absent: JVD - GI/Abdominal Exam GI & Abdominal Exam: Normal Bowel Sounds, Soft. absent: Distended, Tenderness - Exam Exam: absent: Bladder Distension Additional comments: singleton connected to CBI in place singleton bag w/ 600cc yellow urine w/ no blood or clots - Extremities Exam Extremities exam: full ROM - Back Exam Back exam: NORMAL INSPECTION. absent: CVA tenderness (L), CVA tenderness (R) - Neurological Exam Neurological exam: Alert, CN II-XII Intact, Normal Gait, Oriented x3 - Psychiatric Exam Psychiatric exam: Normal Affect, Normal Mood - Skin Skin Exam: Normal Color, Warm Discharge Plan - Discharge Medications Prescriptions: Cefpodoxime [Vantin] 100 mg PO Q12H #14 tab Finasteride [Proscar] 5 mg PO DAILY #30 tab - Follow Up Plan Condition: FAIR Disposition: HOME/ ROUTINE Instructions: Cystoscopy (DC), Urinary Tract Infection in Men (DC), Singleton Catheter Placement and Care (DC), Acute Hematuria (DC), Anemia (DC) Additional Instructions: - please follow up Dr. Cerda within 1 week for removal of singletno catheter - please follow up Dr. Vargas within 1-2 weeks for medical management - please take your medications Vantin, Proscar as prescribed - if you experience any bleeding, trouble urinating, fevers/chills or severe abdominal pain, please go to ER for workup Thanks Ben Schmidt PGY1 Dr. Morataya, Attending Physician Referrals: Selvin Cerda MD [Staff Provider] - Jas Yoder MD [Primary Care Provider] - <Juan Morataya - Last Filed: 01/17/17 13:00> Provider - Provider Date of Admission: 01/11/17 20:14 Attending physician: Juan Morataya MD Primary care physician: Jas Yoder MD Hospital Course - Lab Results Lab Results: Micro Results 01/11/17 21:30 Urine,Clean Catch Urine Culture - Final Serratia Marcescens Most Recent Lab Values WBC 10.0 10^3/ul (4.5-11.0) D 01/16/17 07:07 RBC 4.86 10^6/uL (3.5-6.1) 01/16/17 07:07 Hgb 11.8 g/dL (14.0-18.0) L 01/16/17 07:07 Hct 36.4 % (42.0-52.0) L 01/16/17 07:07 MCV 74.9 fl (80.0-105.0) L 01/16/17 07:07 MCH 24.3 pg (25.0-35.0) L 01/16/17 07:07 MCHC 32.4 g/dl (31.0-37.0) 01/16/17 07:07 RDW 16.8 % (11.5-14.5) H 01/16/17 07:07 Plt Count 247 10^3/uL (120.0-450.0) 01/16/17 07:07 MPV 10.4 fl (7.0-11.0) 01/14/17 06:45 Gran % 84.8 % (50.0-68.0) H 01/16/17 07:07 Lymph % (Auto) 6.3 % (22.0-35.0) L 01/16/17 07:07 [place] % (Auto) 5.6 % (1.0-6.0) 01/16/17 07:07 Eos % (Auto) 3.1 % (1.5-5.0) 01/16/17 07:07 Baso % (Auto) 0.2 % (0.0-3.0) 01/16/17 07:07 Gran # 8.49 (1.4-6.5) H 01/16/17 07:07 Lymph # 0.6 (1.2-3.4) L 01/16/17 07:07 [place] # 0.6 (0.1-0.6) 01/16/17 07:07 Eos # 0.3 (0.0-0.7) 01/16/17 07:07 Baso # 0.02 K/mm3 (0.0-2.0) 01/16/17 07:07 Retic Count 1.18 % (0.5-1.5) 01/12/17 07:30 PT 10.7 Seconds (9.9-11.8) 01/11/17 18:54 INR 0.99 (0.93-1.08) 01/11/17 18:54 APTT 25.6 Seconds (23.7-30.8) 01/11/17 18:54 Sodium 140 mmol/L (132-148) 01/16/17 07:07 Potassium 3.6 mmol/L (3.6-5.0) 01/16/17 07:07 Chloride 106 mmol/L (98-107) 01/16/17 07:07 Carbon Dioxide 24 mmol/L (21-33) 01/16/17 07:07 Anion Gap 14 (10-20) 01/16/17 07:07 BUN 14 mg/dL (7-21) 01/16/17 07:07 Creatinine 1.1 mg/dL (0.5-1.4) 01/16/17 07:07 Est GFR ( Amer) > 60 01/16/17 07:07 Est GFR (Non-Af Amer) > 60 01/16/17 07:07 Random Glucose 90 mg/dL (70-110) 01/16/17 07:07 Calcium 8.1 mg/dL (8.4-10.5) L 01/16/17 07:07 TIBC 452 ug/dL (261-462) 01/11/17 18:54 Transferrin 364.35 mg/dL (206-381) 01/11/17 18:54 Ferritin 2.7 ng/mL 01/11/17 18:54 Total Bilirubin 0.2 mg/dL (0.2-1.3) 01/11/17 18:54 AST 28 U/L (17-59) 01/11/17 18:54 ALT 35 U/L (7-56) 01/11/17 18:54 Alkaline Phosphatase 72 U/L (38-126) 01/11/17 18:54 Lactate Dehydrogenase 324 U/L (333-699) L 01/11/17 18:54 Total Creatine Kinase 75 U/L (35-230) 01/11/17 18:54 Troponin I < 0.01 ng/mL 01/11/17 18:54 Total Protein 7.0 g/dL (5.8-8.3) 01/11/17 18:54 Albumin 4.2 g/dL (3.0-4.8) 01/11/17 18:54 Globulin 2.8 gm/dL 01/11/17 18:54 Albumin/Globulin Ratio 1.5 (1.1-1.8) 01/11/17 18:54 Urine Color Brown (YELLOW) 01/11/17 19:47 Urine Appearance Sl cloudy (CLEAR) 01/11/17 19:47 Urine pH 6.5 (4.7-8.0) 01/11/17 19:47 Ur Specific [place] 1.025 (1.005-1.035) 01/11/17 19:47 Urine Protein >=300 mg/dL (<30 mg/dL) H 01/11/17 19:47 Urine Glucose (UA) Negative mg/dL (NEGATIVE) 01/11/17 19:47 Urine Ketones Trace mg/dL (NEGATIVE) H 01/11/17 19:47 Urine Blood Large (NEGATIVE) H 01/11/17 19:47 Urine Nitrate Positive (NEGATIVE) H 01/11/17 19:47 Urine Bilirubin Moderate (NEGATIVE) H 01/11/17 19:47 Urine Urobilinogen 2.0 E.U./dL (<1 E.U./dL) H 01/11/17 19:47 Ur Leukocyte Esterase Large Bess/uL (NEGATIVE) H 01/11/17 19:47 Urine RBC Tntc /hpf (0-2) 01/11/17 19:47 Urine WBC Tntc /hpf (0-6) 01/11/17 19:47 Ur Epithelial Cells None /hpf (0-5) 01/11/17 19:47 Urine Bacteria Large (NEG) 01/11/17 19:47 Blood Type A POSITIVE 01/14/17 12:50 Blood Type Confirm A POSITIVE 01/11/17 19:23 Antibody Screen Negative 01/14/17 12:50 Crossmatch See Detail 01/14/17 12:50 BBK History Checked Patient has bt 01/14/17 12:50 Attending/Attestation - Attestation I have personally seen and examined this patient.: Yes I have fully participated in the care of the patient.: Yes I have reviewed all pertinent clinical information, including history, physical exam and plan: Yes Notes (Text): I have seen and examined the patient at bedside. Agree with the above note with the following additions/ exceptions: Briefly this is 71 year old male with history of hypotonic bladder, bladder diverticulum, hypertension, hyperlipidemia who presents with gross hematuria and found to be anemic. He was given 2 units of prbc during hospitalization. Patient underwent cystoscopy with evacuation of clots and fulguration of bleeding prostate and bladder vessels. He was maintained on CBI till this morning. Urine appears clear and has no gross blood. Patient did have a temp of 100.3 last night which got resolved with tylenol. Discussed with Dr Watts who was covering for Dr Cerda who agreed to send the patient home with singleton. Upon discharge patient will follow up with Dr Yoder (pmd) and Dr Cerda. Dr Juan Morataya
--- NOTE | 2017-01-18 08:06 | OP ---
PROCEDURE DATE: 01/15/2017 PREOPERATIVE DIAGNOSES: Gross hematuria and anemia. POSTOPERATIVE DIAGNOSES: Gross hematuria and anemia. PROCEDURE: Cystoscopy, bladder irrigation of evacuation of clot, fulguration of prostatic and bladder bleeding vessels. ATTENDING SURGEON: Dr. Selvin Cerda. ANESTHESIA: General. SPECIMEN: Clot from bladder sent to pathology. DRAINS: 22-Singaporean 3-way Kendrick catheter. COMPLICATIONS: None. OPERATIVE FINDINGS: After informed consent was obtained, the patient was taken to the operating room, placed on the operating table. Anesthesia was administered. The patient was then placed dorsal lithotomy position and prepped and draped in the usual sterile fashion. A 26-Singaporean resectoscope sheath with a visualizing obturator was placed in the patient's urethra and advanced proximally under direct vision until the bladder was entered. Vision was difficult once inside the bladder, there was large amount of clot and debris. At this point, Urovac evacuator was used, the clots were able to be evacuated out, along with some sediment. Clots were sent to pathology as specimen. At this point, further inspection was made, there was a huge bladder diverticulum located on the left floor. The scope was able to be advanced into the diverticulum which was inspected. There was some ragged tissue in the diverticulum, but no papillary tumors. There was some active bleeding from the floor of the diverticulum. The scope was then pulled into the bladder proper. Full survey inspection of the bladder was performed. Again revealed no papillary bladder tumors. There was hypovascularity of the mucosa noted especially on the posterior wall. There was grade I to II trabeculation. The scope was then withdrawn through the bladder neck region. There was a massively enlarged prostate with the median lobe tissue growing up into the bladder. There was active bleeding from the prostate. The length of the prostatic urethra was approximately 5 cm. There was hypovascularity throughout the length of the prostate with active bleeding noted on the median lobe and on the bladder neck region. At this point, a Roller Ball electrode was obtained. The Roller Ball was then used to fulgurate any of the actively bleeding vessels. The scope was then advanced into the diverticulum, again the bleeding vessels on the floor of the diverticulum were also then cauterized. At this point, hemostasis was complete from the bladder with no active bleeding. There was still some oozing into the prostatic urethra which again was then cauterized using the Roller Ball electrode. When hemostasis was complete, the procedure was completed. The cystoscope was withdrawn in its entirety. A 22-Singaporean 3-way Kendrick catheter was then passed and placed to continuous bladder irrigation. The patient tolerated the procedure well. He was taken to the recovery room in awake and stable condition. Selvin Cerda MD
--- NOTE | 2017-01-18 11:10 | PQF ANEMIA ---
01/18/17 Dr. Guillermo Morataya, Microcytic anemia is documented, along with gross hematuria, for this patient. Is microcytic anemia due to acute/chronic blood loss? Thank you. Clarification of your documentation is requested to better reflect the severity of illness and intensity of treatment of your patient. Indicators present [x] Anemia: yes [x] Drop in H&H from []_11.4__ to []__7_ [] Hypotension-no [] GI Bleed-no [x] Transfusion(s) 4 units [x] Acute bleed other sites-hematuria [] Tachycardia-no [x] Surgical Procedure Blood Loss (expected not a complication)yes cysto s/ p TURB, fulgaration of bleeding prostatic and bladder vessels. Other:[] Location in the medical record that reflects the above clinical findings: [ progress notes] Treatment Provided: [ yes transfusion, urology consult, cystoscopy] PHYSICIAN'S RESPONSE Based on your medical judgment of the clinical indicators outlined above, are you treating this patient for a known or suspected: [x] Acute blood loss anemia [] Chronic blood loss anemia [] Acute on Chronic blood loss anemia [] Anemia due to malignancy [] Anemia due to chemotherapy or radiation therapy [] Anemia of Chronic Disease, please specify: [] [] Other, please indicate type of anemia []____ [] If Unable to Determine, please check the box, sign and date. Present On Admission (POA) Indicator: [x] Present at the time of admission [] Not present at the time of admission [] Clinically Undetermined In responding to this query, please exercise your independent professional judgment. The fact that a question is asked does not imply that any particular answer is desired or expected. Thank you for your clarification on this documentation. 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
== END 2017-01-16 15:11 | disposition home or self-care (01) | DRG 663 ==
LOC: ED 18:09 → ERH 20:14 → 5RNO 22:28
PROVIDERS: ADMIT Internal Medicine; ATTEND Hospitalist
PROC: 30233N1 Transfusion of Nonautologous Red Blood Cells into Peripheral Vein, Percutaneous Approach (ICD-10-PCS; 2017-01-11)
PROC: 0TCB8ZZ Extirpation of Matter from Bladder, Via Natural or Artificial Opening Endoscopic (ICD-10-PCS; principal; 2017-01-15 12:00)
PROC: 0W3R8ZZ Control Bleeding in Genitourinary Tract, Via Natural or Artificial Opening Endoscopic (ICD-10-PCS; 2017-01-15 12:00)
DX: N31.2 Flaccid neuropathic bladder, not elsewhere classified (principal); N39.0 Urinary tract infection, site not specified; R31.0 Gross hematuria; D62 Acute posthemorrhagic anemia; I10 Essential (primary) hypertension; D50.9 Iron deficiency anemia, unspecified; E78.00 Pure hypercholesterolemia, unspecified; E78.5 Hyperlipidemia, unspecified; N32.3 Diverticulum of bladder; N40.0 Benign prostatic hyperplasia without lower urinary tract symptoms; Z79.899 Other long term (current) drug therapy; Z87.891 Personal history of nicotine dependence; Z88.1 Allergy status to other antibiotic agents; Z88.8 Allergy status to other drugs, medicaments and biological substances

== ENCOUNTER 2017-09-13 06:08 | Day surgery (SDC) | payer MEDICARE ==
[2017-09-13 06:33] VITALS: BMI 20.9
[2017-09-13] MEDS ORDERED: cefTRIAXone (Rocephin) 1 gm Inj ONE (07:25)
[2017-09-13] MEDS ORDERED: Midazolam 2 MG/2 ML VIAL ONE (08:01)
[2017-09-13] MEDS ORDERED: Propofol 10 mg/ml Inj (20 ML) ONE (08:01)
[2017-09-13] MEDS ORDERED: Gentamicin 80 mg/2mL Inj. ONE (08:13)
[2017-09-13] MEDS ORDERED: ePHEDrine 50 mg/ml Inj ONE (08:36)
[2017-09-13] MEDS ORDERED: HYDROmorphone 0.5 mg/0.5 ml ISec IVP PRN (10:53)
[2017-09-13] MEDS ORDERED: Lactated Ringer's 1,000 ML IV SCH (11:00)
[2017-09-13 11:38] VITALS: O2SAT 99
[2017-09-13 13:43] VITALS: BP 123/70; PULSE 73; RESP 20; TEMP 97.6
--- NOTE | 2017-09-13 14:06 | OP ---
PROCEDURE DATE: 09/13/2017 PREOPERATIVE DIAGNOSES: Bladder outlet obstruction, urinary retention. POSTOPERATIVE DIAGNOSES: Bladder outlet obstruction, urinary retention. PROCEDURE: A cystoscopy, GreenLight prostate laser vaporization. ATTENDING SURGEON: Selvin Cerda MD. ANESTHESIA: General. SPECIMENS: There were none. DRAIN: A 22[place]izen [place] 3-way Kendrick catheter. COMPLICATIONS: There were none. OPERATIVE FINDINGS: After informed consent was obtained, the patient was taken to the operative room and placed on the operating table. Anesthesia was administered. The patient was placed in the dorsal lithotomy position and prepped and draped in the usual sterile fashion. A 22-Citizen [place] scope was placed in the patient's urethra and advanced proximally under direct vision until the bladder was entered. 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 Diverticulum was inspected. There were no stones or tumors noted. There was a large clot noted in the bladder. A Urovac device was obtained and the clot was able to be evacuated out of the bladder. Further inspection revealed no papillary tumors. The trigone could be identified. The right ureteral orifice could be visualized as could the left just next to the diverticulum. The prostatic urethra was then examined. There was an extremely large occlusive-appearing prostate with trilobar hypertrophy. There was median lobe tissue noted growing into the bladder. The prostatic urethra measured about 4 cm in length. There was grade 1 to 2 trabeculation noted. At this point, the scope was withdrawn to the level of the verumontanum. A GreenLight laser fiber was then obtained. It was passed through the cystoscope and under direct vision, the prostate was then systematically vaporized. First, the median lobe tissue was vaporized down to the bladder neck region. After the median lobe tissue was vaporized, lateral lobe tissue and apical tissue were also addressed. The prostate was systematically vaporized starting at the bladder neck proximally and working to the level of the verumontanum distally. Any bleeding points encountered during the vaporization were controlled using the GreenLight laser fiber. After an extended period of time, a large open channel was created. The lateral lobe tissue had been completely vaporized as well as tissue at the apex at 12 o'clock position and on the floor at the 6 o'clock position, the median lobe tissue had been removed. After the vaporization was complete, the view from the verumontanum revealed a widely opened prostatic fossa. There was good hemostasis. At this point, the bladder was inspected. A small amount of debris was noted in the bladder. This was able to be irrigated out until it was clear. At this point, the procedure was completed. The cystoscope was removed and a 22[place]izen [place] 3-way Kendrick catheter was passed and placed to continuous bladder irrigation. The patient tolerated the procedure well, was taken to the recovery room awake and in stable condition. Selvin Cerda MD
== END 2017-09-13 13:50 | disposition home or self-care (01) ==
LOC: SDS 06:08
PROVIDERS: ATTEND Urology
DX: N40.1 Benign prostatic hyperplasia with lower urinary tract symptoms (principal); N13.8 Other obstructive and reflux uropathy; R33.8 Other retention of urine; N32.3 Diverticulum of bladder
CPT/HCPCS: 52648; J0696; J1170; J1580; J2001; J2250; J2704; J3010; J7120 ×2

== ENCOUNTER 2018-09-09 13:29 | Outpatient (CLI) | payer MEDICARE | END 2018-09-09 13:30 | disposition home or self-care (01) | LOC: LAB 13:29 ==